=== PATIENT | female | born 1990 | race Caucasian/White ===

== ENCOUNTER → 2017-09-04 | Outpatient (CLI) | payer OTHER ==
[~2017-09-04] MED LIST: BOTOX 100100 U/VIAL IM; GRALISE600 MG PO; IBU600 MG PO; IMITREX 25MG TA25 MG PO; NORCO 325 MG-51 TAB PO; PHENERGAN 25 TA25 MG PO; PRENATAL MVI; PRENATAL1 TA1; RITALIN10 MG PO; ZOFRAN 4MG T4 MG/TAB PO
== END ==
LOC: COL.RAD 14:49
DX: O30.001 Twin pregnancy, unspecified number of placenta and unspecified number of amniotic sacs, first trimester (principal); Z3A.09 9 weeks gestation of pregnancy

== ENCOUNTER 2017-10-19 09:07 | Emergency (ER) | payer OTHER ==
[~2017-10-19] VITALS: Ht 165.1 cm; Wt 78.2 kg
[2017-10-19 09:13] VITALS: TEMP 98.1
[2017-10-19 10:01] LABS: BASO % 0.1 % (0.0-2.0); BILIRUBIN,TOTAL 0.5 mg/dL (0.0-1.0); CREATININE, serum 0.47 mg/dL (0.52-1.25); EOS % 0.2 % (0-4.0); GRAN % 92.5 % (42.2-75.2); HEMATOCRIT 42.4 % (37.0-47.0); HEMOGLOBIN 14.2 g/dl (12.5-16.0); LYMPH # 0.4 (1.2-3.4); LYMPH % 4.4 % (20.0-51.0); MEAN CELL VOLUME 90 fl (80.0-100.0); MEAN CORPUSCULAR HEMOGLOBIN 30 pg (27.0-31.0); MEAN CORPUSCULAR HGB CONC 34 g/dl (33.0-37.0); MEAN PLATELET VOLUME 9.5 fl (7.4-10.4); MONO # 0.2 (0.1-0.6); MONO % 2.5 % (1.7-9.3); PLATELET COUNT 230 K/mm3 (130-400); POTASSIUM 3.8 mmol/L (3.4-5.0); RED BLOOD COUNT 4.74 M/mm3 (4.10-5.30); REDCELL DISTRIBUTION WIDTH-CV 14.3 % (11.5-14.5); TOTAL PROTEIN 7.1 gm/dL (6.4-8.2)
[2017-10-19 11:20] LABS: COLLECTION METHOD CLEAN CATCH
[2017-10-19 11:43] LABS: AMORPHOUS CRYSTAL Present /uL; MUCOUS Present /lpf; PH 5 (5-8); URINE APPEARANCE Turbid; URINE BACTERIA None Seen /hpf; URINE BILIRUBIN Negative (NEGATIVE); URINE BLOOD 1+ (NEGATIVE); URINE COLOR Yellow; URINE GLUCOSE Negative (NEGATIVE); URINE KETONE 1+ (NEGATIVE); URINE LEUKOCYTE ESTERASE Negative (NEGATIVE); URINE NITRATE Negative (NEGATIVE); URINE PROTEIN(semi-quant) Negative (NEGATIVE); URINE RBC None Seen /hpf; URINE UROBILINOGEN Negative (NEGATIVE)
[2017-10-19] MEDS ORDERED: ZOFRAN ODT4 MG PO (12:13)
[2017-10-19 12:47] VITALS: BP 107/55; PULSE 92
== END 2017-10-19 12:48 | disposition home or self-care (01) ==
LOC: COL.ER 09:07
PROVIDERS: Physician Assistant
DX: O21.8 Other vomiting complicating pregnancy (principal); O99.342 Other mental disorders complicating pregnancy, second trimester; G43.909 Migraine, unspecified, not intractable, without status migrainosus; Z3A.15 15 weeks gestation of pregnancy
CPT/HCPCS: J2405; J2550; J7030

== ENCOUNTER 2018-03-22 07:01 | Inpatient (IN) | payer OTHER ==
[2018-03-22] VITALS (25 sets, daily range): BP systolic 90–134; BP diastolic 54–76; PULSE 15–106; TEMP 97.5–98.9
[~2018-03-22] VITALS: Ht 165.1 cm; Wt 86.9 kg
[~2018-03-22 07:01] MED LIST changes: +FOLIC ACID 40400 MCG PO; +ZOFRAN ODT4 MG PO
[2018-03-22 08:07] LABS: BASO % 0.3 % (0.0-2.0); EOS # 0.1 (0.0-0.7); EOS % 0.9 % (0-4.0); GRAN # 5.3 (1.4-6.5); GRAN % 70.9 % (42.2-75.2); LYMPH # 1.4 (1.2-3.4); LYMPH % 18.8 % (20.0-51.0); MEAN CELL VOLUME 87 fl (80.0-100.0); MEAN CORPUSCULAR HEMOGLOBIN 29 pg (27.0-31.0); MEAN CORPUSCULAR HGB CONC 33 g/dl (33.0-37.0); MONO # 0.7 (0.1-0.6); MONO % 8.8 % (1.7-9.3); PLATELET COUNT 188 K/mm3 (130-400); RED BLOOD COUNT 4.18 M/mm3 (4.10-5.30)
[2018-03-22 08:08] LABS: HEMATOCRIT 36.4 % (37.0-47.0)
[2018-03-23] VITALS: BP 123/85; PULSE 90; TEMP 98.3
[2018-03-23 03:36] VITALS: BP 114/73; PULSE 68; TEMP 98
[2018-03-23 08:03] LABS: HEMOGLOBIN 10.5 g/dl (12.5-16.0)
[2018-03-23 08:04] LABS: HEMATOCRIT 32.5 % (37.0-47.0)
[2018-03-23 08:19] VITALS: BP 100/57; PULSE 85; TEMP 98.6
[2018-03-23] MEDS ORDERED: IBU600 MG PO (12:43)
[2018-03-23] MEDS ORDERED: PERCOCET 325 MG1 TA2 PO (12:43)
[2018-03-23 16:30] VITALS: BP 117/89; PULSE 78; TEMP 97.6
[2018-03-23 20:10] VITALS: BP 121/65; PULSE 86; TEMP 97.9
[2018-03-24 07:40] VITALS: BP 130/81; PULSE 84; TEMP 98.8
== END 2018-03-24 13:25 | disposition home or self-care (01) | DRG 775 ==
LOC: OB 07:01 → LDR 07:01 → OB 15:02 → LDR 18:05 → OB 03-24 13:25
PROVIDERS: Obstetrics & Gynecology
PROC: 10E0XZZ Delivery of Products of Conception, External Approach (ICD-10-PCS; principal; 2018-03-22)
PROC: 3E033VJ Introduction of Other Hormone into Peripheral Vein, Percutaneous Approach (ICD-10-PCS; 2018-03-22)
PROC: 10907ZC Drainage of Amniotic Fluid, Therapeutic from Products of Conception, Via Natural or Artificial Opening (ICD-10-PCS; 2018-03-22)
DX: O30.043 Twin pregnancy, dichorionic/diamniotic, third trimester (principal); Z3A.37 37 weeks gestation of pregnancy; Z37.2 Twins, both liveborn; O32.1XX0 Maternal care for breech presentation, not applicable or unspecified
CPT/HCPCS: J2175; J2400; J2590; J2795; J7120

== ENCOUNTER 2018-05-19 06:09 | Day surgery (SDC) | payer BC, OTHER ==
[~2018-05-19] VITALS: Ht 165.1 cm; Wt 75.6 kg
[~2018-05-19 06:09] MED LIST changes: +PERCOCET 325 MG1 TA2 PO
[2018-05-19 06:48] VITALS: BP 110/72; PULSE 65; TEMP 98.5
[2018-05-19] MEDS ORDERED: PRENATAL VITAMI1 TA3 PO (06:55)
[2018-05-19] MEDS ORDERED: MAGNESIUM200 MG PO (06:56)
[2018-05-19] MEDS ORDERED: ERRIN0.35 MG PO (06:56)
[2018-05-19 09:06] VITALS: BP 120/68; PULSE 79; TEMP 98.2
[2018-05-19 09:21] VITALS: BP 125/83; PULSE 84
[2018-05-19 09:36] VITALS: BP 131/86; PULSE 82
[2018-05-19 09:51] VITALS: BP 121/88; PULSE 72
== END 2018-05-19 10:14 | disposition home or self-care (01) ==
LOC: SDCO 06:09
DX: K42.9 Umbilical hernia without obstruction or gangrene (principal)
CPT/HCPCS: J2250; J2405; J2704; J3010; J7120

== ENCOUNTER 2019-05-20 14:37 | Outpatient (RCR) | payer OTHER ==
[~2019-05-20 14:37] MED LIST changes: +ERRIN0.35 MG PO; +MAGNESIUM200 MG PO; +PRENATAL VITAMI1 TA3 PO
== END 2019-08-18 | disposition home or self-care (01) ==
LOC: WSOH
DX: S00.11XA Contusion of right eyelid and periocular area, initial encounter (principal); W54.0XXA Bitten by dog, initial encounter

== ENCOUNTER 2020-05-24 15:26 | Outpatient (RCR) | payer OTHER ==
[2020-07-04] MEDS ORDERED: IBU600 MG PO (08:50)
[2020-07-04] MEDS ORDERED: PERCOCET 325 MG1 TA2 PO (08:51)
== END 2020-08-22 | disposition home or self-care (01) ==
LOC: WSOH
DX: O9A.213 Injury, poisoning and certain other consequences of external causes complicating pregnancy, third trimester (principal); S61.401A Unspecified open wound of right hand, initial encounter; W54.0XXA Bitten by dog, initial encounter; Z90.89 Acquired absence of other organs; Z98.890 Other specified postprocedural states; T78.40XA Allergy, unspecified, initial encounter; Y99.0 Civilian activity done for income or pay

== ENCOUNTER → 2020-06-29 | Outpatient (CLI) | payer BC | LOC: ZCOL.LAB 08:00 | DX: Z20.828 Contact with and (suspected) exposure to other viral communicable diseases (principal) ==

== ENCOUNTER 2022-03-07 10:05 | Outpatient (CLI) | payer BC ==
[~2022-03-07] VITALS: Ht 165.1 cm; Wt 90.5 kg
[2022-03-07 10:10] VITALS: BP 120/69; PULSE 85; TEMP 98.4
[2022-03-07] MEDS ORDERED: ASPIRIN 81M81 MG/TA2 PO (10:53)
[2022-03-07] MEDS ORDERED: SYNTHROID 0.0.025 MG PO (10:53)
[2022-03-07] MEDS ORDERED: ZYRTEC 10MG10 MG PO (10:54)
[2022-03-07] MEDS ORDERED: MAGNESIUM250 M1 PO (10:54)
[2022-03-07] MEDS ORDERED: NATURAL IRON65 MG (10:56)
[2022-03-07 11:00] VITALS: BP 126/61; PULSE 84
--- NOTE | 2022-03-07 11:18 | NUR ---
1025 PATIENT HERE FROM WORK WITH COMPLAINTS OF PEEING ALOT OR LEAKING FLUID. EFM ON BABY A 125 BABY VERY ACTIVE. BABY B RIGHT UPPER QUAD 130 VERY ACTIVE. OCCASIONAL CONTRACTIONS NOTED BUT PATIENT STATES NOT UNCOMFORTABLE. IV TO LEFT HAND LR 1000CC WITH GARIMA 5MU IVPB STARTED AT THIS TIME. 1045 BETAMETHASONE 12 MG IM TO RIGHT BUTTOCKS.
[2022-03-07 11:30] VITALS: BP 103/60; PULSE 79; TEMP 98.4
--- NOTE | 2022-03-07 11:36 | NUR ---
1100 DR HERNANDEZ AT BEDSIDE TO TALK TO PATIENT AND GET HISTORY. ASSESSMENT COMPLETED. SVE BY DR HERNANDEZ. PATIENT STATES SHE CANT FEEL DIFFERENCE BETWEEN CONTRACTIONS AND BABY MOVEMENTS. TALKS WITH SURROGATE PARENTS ON PHONE.
[2022-03-07 12:00] VITALS: BP 102/55; PULSE 90
[2022-03-07 12:30] VITALS: BP 114/59; PULSE 93
[2022-03-07 12:45] VITALS: BP 118/62; PULSE 95
--- NOTE | 2022-03-07 13:13 | NUR ---
1215 BRETHINE 0.25 SQ RIGHT ARM 1220 PATIENT STATES SHE IS NOT FEELING CONTRACTIONS
--- NOTE | 2022-03-07 13:15 | NUR ---
1245 SVE UNCHANGED AT THIS TIME. FLIGHT TEAM FROM [place] HERE AT THIS TIME FOR REPORT AND TALKS WITH PATIENT AND . 1300 PATIENT ON GURNEY FOR TRANSPORT. REPORT GIVEN TO MISSY FLIGHT CREW. REPORT CALLED TO JOSE ALBERTO KOTHARIOCCUPATIONAL THERAPY AIDE NURSE AT [facility]. PATIENT DENIES NEEDS AT THISTIME.
== END 2022-03-07 13:00 ==
LOC: LDRO 10:05
DX: O42.913 Preterm premature rupture of membranes, unspecified as to length of time between rupture and onset of labor, third trimester (principal); Z3A.34 34 weeks gestation of pregnancy
CPT/HCPCS: J0702; J2540; J3105; J7120

== ENCOUNTER 2022-10-06 08:27 | Emergency (ER) | payer BC ==
[~2022-10-06] VITALS: Ht 165.1 cm; Wt 84.1 kg
[~2022-10-06 08:27] MED LIST changes: +ASPIRIN 81M81 MG/TA2 PO; +MAGNESIUM250 M1 PO; +NATURAL IRON65 MG; +SYNTHROID 0.0.025 MG PO; +ZYRTEC 10MG10 MG PO
[2022-10-06 09:14] LABS: BASO % 0.6 % (0.0-2.0); EOS # 0.2 K/mm3 (0.0-0.7); EOS % 2.8 % (0.0-4.0); GRAN # 3.4 K/mm3 (1.4-6.5); GRAN % 64.2 % (42.2-75.2); HEMATOCRIT 46.3 % (37.0-47.0); HEMOGLOBIN 15.6 g/dl (12.5-16.0); LYMPH # 1.4 K/mm3 (1.2-3.4); LYMPH % 26.2 % (20.0-51.0); MEAN CELL VOLUME 88 fl (80.0-100.0); MEAN CORPUSCULAR HEMOGLOBIN 30 pg (27-31); MEAN CORPUSCULAR HGB CONC 34 g/dl (33.0-37.0); MEAN PLATELET VOLUME 9.3 fl (7.4-10.4); MONO # 0.3 K/mm3 (0.1-0.6); PLATELET COUNT 285 K/mm3 (130-400); RED BLOOD COUNT 5.25 M/mm3 (4.10-5.30); REDCELL DISTRIBUTION WIDTH-CV 12.9 % (11.5-14.5)
[2022-10-06 09:27] LABS: ALANINE AMINOTRANSFERASE 17 U/L (0-55); ALBUMIN 4.8 gm/dL (3.5-5.0); ALKALINE PHOSPHATASE 61 U/L (40-150); ANION GAP 12 mmol/L (7-16); AST,SGOT 21 U/L (5-34); BILIRUBIN,TOTAL 0.7 mg/dL (0.2-1.2); BLOOD UREA NITROGEN 8 mg/dL (7-19); CARBON DIOXIDE 24 mmol/L (22-29); CHLORIDE 106 mmol/L (98-107); CREATINE KINASE 211 U/L (29-168); CREATININE, serum 0.73 mg/dL (0.57-1.11); GLUCOSE 109 mg/dL (70-99); POTASSIUM 3.6 mmol/L (3.5-4.5); SODIUM 142 mmol/L (136-145); TOTAL PROTEIN 7.9 gm/dL (6.2-8.1)
[2022-10-06 09:32] LABS: TROPONIN-I < 0.010 ng/mL (0.00-0.033)
[2022-10-06 12:16] VITALS: BP 117/73; PULSE 68; TEMP 98.5
== END 2022-10-06 12:17 | disposition home or self-care (01) ==
LOC: COL.ER 08:27
PROVIDERS: Emergency Medicine
DX: R07.89 Other chest pain (principal); R06.02 Shortness of breath; R42 Dizziness and giddiness; N64.4 Mastodynia
CPT/HCPCS: J1885; J7030

== ENCOUNTER → 2023-08-27 | Outpatient (CLI) | payer BC | LOC: COL.RAD 09:58 | DX: Z31.83 Encounter for assisted reproductive fertility procedure cycle (principal) ==

== ENCOUNTER → 2023-09-02 | Outpatient (CLI) | payer BC | LOC: COL.LAB 09:04 | DX: Z31.83 Encounter for assisted reproductive fertility procedure cycle (principal) ==

== ENCOUNTER 2024-05-31 06:23 | Inpatient (IN) | payer BC ==
[2024-05-31] VITALS (20 sets, daily range): BP systolic 108–137; BP diastolic 59–93; PULSE 63–83; TEMP 97.8–98.5
[~2024-05-31] VITALS: Ht 165.1 cm; Wt 85.0 kg
[~2024-05-31 06:23] MED LIST changes: +LR & Oxytocin 500 ML IV SCH; +LR 1,000 ML IV SCH
[2024-05-31 08:18] LABS: BASO % 0.2 % (0.0-2.0); EOS # 0.1 K/mm3 (0.0-0.7); EOS % 1.6 % (0.0-4.0); GRAN # 3.6 K/mm3 (1.4-6.5); GRAN % 62.8 % (42.2-75.2); HEMATOCRIT 37.1 % (37.0-47.0); HEMOGLOBIN 12.6 g/dl (12.5-16.0); LYMPH # 1.5 K/mm3 (1.2-3.4); LYMPH % 25.6 % (20.0-51.0); MEAN CELL VOLUME 88 fl (80.0-100.0); MEAN CORPUSCULAR HEMOGLOBIN 30 pg (27-31); MEAN CORPUSCULAR HGB CONC 34 g/dl (33.0-37.0); MEAN PLATELET VOLUME 10.8 fl (7.4-10.4); MONO # 0.5 K/mm3 (0.1-0.6); MONO % 9.3 % (1.7-9.3); PLATELET COUNT 172 K/mm3 (130-400); RED BLOOD COUNT 4.23 M/mm3 (4.10-5.30)
--- NOTE | 2024-05-31 08:28 | NUR ---
0645 PT HERE FOR INDUCTION OF LABOR FOR POST DATES. 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 POC DISCUSSED WITH BOTH PARTIES AND BOTH PARTIES VERBALIZES UNDERSTANDING AND ALL QUESTIONS ANSWERED AT THIS TIME.
[2024-05-31] MEDS ORDERED: ROPivacaine PF 0.2% 200 ML IV ONE (09:48)
[2024-05-31] MEDS ORDERED: diphenhydrAMINE 50 MG/ML 1 ML VIAL IV PRN (10:30)
[2024-05-31] MEDS ORDERED: Naloxone 0.4 MG/ML VIAL IV PRN ×2 (10:30→14:00)
[2024-05-31] MEDS ORDERED: Ondansetron 4 MG/2 ML VIAL IV PRN (10:30)
[2024-05-31] MEDS ORDERED: ePHEDrine 50 MG/10 ML VIAL IV PRN (10:30)
[2024-05-31] MEDS ORDERED: diphenhydrAMINE 25 MG CAP PO PRN (10:30)
--- NOTE | 2024-05-31 10:37 | NUR ---
RN BEDSIDE, ATTEMPTING TO HANDHOLD/ADJUST MONITORS WHILE PT IS ON BIRTHING BALL
--- NOTE | 2024-05-31 10:42 | NUR ---
RN BEDSIDE ADJUSTING MONITORS. MANAGER COUNCIL BEDSIDE DISCUSSING POC AND HX WITH PT
--- NOTE | 2024-05-31 10:48 | NUR ---
PT REQUESTING EPIDURAL
--- NOTE | 2024-05-31 11:56 | NUR ---
PT REQUESTING EPIDURAL, PT MOVED TO SIDE OF BED, WAIST CUTTER AND RN X1 BEDSIDE.
--- NOTE | 2024-05-31 11:57 | NUR ---
RN HANDHOLDING MONITORS, PT POSITIONED ON SIDE OF BED FOR EPIDURAL PLACEMENT.
--- NOTE | 2024-05-31 12:13 | NUR ---
PT LAID DOWN IN BED, SEMI FOWLERS WITH A HIP TILT
--- NOTE | 2024-05-31 12:15 | NUR ---
RN REMAINS BEDSIDE ASSESSING FHTS AND MATERNAL COMFORT
--- NOTE | 2024-05-31 12:28 | NUR ---
RON PLACED, BEDSIDE TO DISCUSS POC/VISUALIZES STRIP
--- NOTE | 2024-05-31 12:44 | NUR ---
0705 verbal orders from Robert DUDLEY to start pitocin for IOL
[2024-05-31] MEDS ORDERED: Magnes Hydrox (MOM) 80 MG/ML 30 ML CUP PO PRN (13:30)
[2024-05-31] MEDS ORDERED: Loratadine 10 MG TAB PO PRN (13:30)
[2024-05-31] MEDS ORDERED: Acetamin/Butalbital/Caffeine 325-50-40 MG TAB PO PRN (13:45)
[2024-05-31] MEDS ORDERED: oxyCODONE 5 MG TAB PO PRN (14:00)
[2024-05-31] MEDS ORDERED: Measles/Mumps/Rubella Virus Vaccine Live w Diluent 0.5 ML VIAL SQ SCH (14:00)
[2024-05-31] MEDS ORDERED: Phenylephrine/Mineral Oil/Petrolatum 57 GM TUBE RC PRN (14:00)
[2024-05-31] MEDS ORDERED: Ibuprofen 600 MG TAB PO SCH (14:00)
[2024-05-31] MEDS ORDERED: Mag/Al Hydrox/Simeth Susp 30 ML CUP PO PRN (14:00)
[2024-05-31] MEDS ORDERED: Acetaminophen 500 MG TAB PO SCH (14:00)
[2024-05-31] MEDS ORDERED: Witch Hazel 50% Pads Bulk TUB TP PRN (14:00)
--- NOTE | 2024-05-31 14:06 | NUR ---
GÉNESIS DUDLEY NOTIFIED PT IS COMPLETE, STATES HE WILL BE IN ROOM FOR DELIVERY
--- NOTE | 2024-05-31 14:09 | NUR ---
AND RN X3 BEDSIDE FOR DELIVERY
--- NOTE | 2024-05-31 14:13 | NUR ---
SPONTANEOUS VAGINAL DELIVERY OF VIABLE MALE INFANT
--- NOTE | 2024-05-31 14:16 | NUR ---
COMMERCIAL DIRECTOR AND RN BEDSIDE FOR PROCEDURE, PT TOLERATED WELL.
--- NOTE | 2024-05-31 16:00 | NUR ---
URSZULA CARE PERFORMED
--- NOTE | 2024-05-31 16:01 | NUR ---
1545 RN BEDSIDE TO ASSESS PT ABILITY TO MOVE/AMBULATE. PT COMPLAINS OF RIGHT LEG STILL BEING NUMB. PT UNABLE TO MOVE RIGHT LEG OFF OF BED.
[2024-05-31] MEDS ORDERED: Sennosides/Docusate 8.6-50 MG TAB PO SCH (17:00)
[2024-05-31] MEDS ORDERED: traZODone 50 MG TAB PO PRN (21:00)
[2024-06-01 03:30] VITALS: BP 127/85; PULSE 67; TEMP 98.7
[2024-06-01 07:01] LABS: HEMATOCRIT 33.3 % (37.0-47.0); HEMOGLOBIN 11.5 g/dl (12.5-16.0)
[2024-06-01] MEDS ORDERED: ROXICODONE 55 MG/TAB PO (07:52)
[2024-06-01] MEDS ORDERED: TYLENOL 500MG500 MG PO (07:53)
[2024-06-01 08:00] VITALS: BP 126/88; PULSE 76; TEMP 98.3
[2024-06-01] MEDS ORDERED: Prenatal Vitamins/Iron/FA TAB PO SCH (09:00)
--- NOTE | 2024-06-01 15:30 | NUR ---
RN GAVE REPORT TO TAYE HUITRON
[2024-06-01 16:59] VITALS: BP 124/89; PULSE 66; TEMP 98
[2024-06-01 20:00] VITALS: BP 115/65; PULSE 65; TEMP 98.1
[2024-06-02 08:00] VITALS: BP 130/88; PULSE 60; TEMP 97.8
--- NOTE | 2024-06-02 09:30 | NUR ---
PT CALLED OUT AND ASKED FOR NURSE. THIS RN RESPONDED. PT STATED THAT SHE HAD BEEN FEELING WEIRD. HER PULSE WAS RACING AND SHE FELT KULWANT. WE TALKED FOR A FEW MOMENTS AND THEN TALKED ABOUT ANXIETY. PT DID SAY THAT THIS HAPPENED SEVERAL TIMES WHEN SHE WAS YOUNGER AND ONCE IN THE . VS AT 0940- 136/79 BP, 81P. WE TALKED SOME MORE ABOUT HORMONES AND GOING HOME. PT STATED SHE KNEW THIS WAS COMING AND WAS TEARY EYED AT THIS POINT. SHE WANTED TO LAY DOWN AND SAID SHE WOULD TRY TO CALM HERSELF DOWN. PT WAS TOLD TO CALL IF SHE NEEDED ME TO CALL FOR SOME ANXIETY MEDICATION, BUT SHE DID NOT FEEL THAT WAS NECESSARY AT THIS TIME.
--- NOTE | 2024-06-02 10:05 | NUR ---
Initial visit; Surrogate mother thanked [employer] Supervisor for looking in on her and offering God's blessings for the wonderful gift she has given to another family. Patient states she has had very good care at [facility].
--- NOTE | 2024-06-02 12:00 | NUR ---
TALKED WITH PT ABOUT HER ANXIETY AGAIN. PT WAS THINKING ABOUT TAKING A TRAZADONE TO HELP HER GET A GOOD NAP IN AND HELP WITH HER ANXIETY. THIS RN CALLED DR CAPPS AND TALKED WITH HIM ABOUT OPTIONS FOR ANXIETY MEDS. DR CAPPS OFFERED THE PT LEXIPRO, BUT THE PT DECLINED SAYING SHE THINKS THIS IS ONLY TEMPORARY. THE PT WAS COMFORTABLE TAKING ANOTHER ÓSCAR AND TRYING TO GET A NAP IN RIGHT AFTER LUNCH.
== END 2024-06-02 15:13 | disposition home or self-care (01) | DRG 807 ==
LOC: OB 06:23 → LDR 06:23 → OB 06-01 09:37
PROVIDERS: ADMIT Obstetrics & Gynecology
PROC: 10E0XZZ Delivery of Products of Conception, External Approach (ICD-10-PCS; principal; 2024-05-31)
PROC: 10907ZC Drainage of Amniotic Fluid, Therapeutic from Products of Conception, Via Natural or Artificial Opening (ICD-10-PCS; 2024-05-31)
PROC: 3E033VJ Introduction of Other Hormone into Peripheral Vein, Percutaneous Approach (ICD-10-PCS; 2024-05-31)
DX: O34.211 Maternal care for low transverse scar from previous cesarean delivery (principal); Z37.0 Single live birth; Z3A.40 40 weeks gestation of pregnancy; O48.0 Post-term pregnancy; O99.284 Endocrine, nutritional and metabolic diseases complicating childbirth; E03.9 Hypothyroidism, unspecified; O69.81X0 Labor and delivery complicated by cord around neck, without compression, not applicable or unspecified; O99.02 Anemia complicating childbirth; D64.9 Anemia, unspecified; Z23 Encounter for immunization
CPT/HCPCS: OP; J2590; J2795; J7120